=== PATIENT | female | born 1950 | race Caucasian/White ===

== ENCOUNTER 2020-02-08 09:57 | Emergency (ER) | payer MEDICARE, SELFPAY ==
--- NOTE | ~2020-02-08 | XR_ITS ---
EXAMINATION: XR ribs LT 2V w CXR 2V DATE: 02/08/2020 10:41 INDICATION: Left anterior chest pain. Fall. TECHNIQUE: Frontal and lateral views of the chest and 3 views of the left ribs were obtained. COMPARISON: None. FINDINGS: CHEST TWO VIEWS: A calcified right lung nodule is consistent with old granulomatous disease. No pleur al effusion or pneumothorax. The heart size is normal. Median sternotomy wires and mediastinal surgic al clips are seen, likely from prior coronary artery bypass grafting. 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 LEFT RIBS: There are fractures of left sixth and seventh ribs. IMPRESSION: 1. Acute fractures of left sixth and seventh ribs. Reviewed, dictated and finalized at location A.
--- NOTE | 2020-02-08 09:58 | ED.GENADULT ---
HPI - General Adult General Chief complaint: Fall Stated complaint: Fall pain in ribs Time Seen by Provider: 02/08/20 09:58 Source: patient Mode of arrival: ambulatory Limitations: no limitations History of Present Illness HPI narrative: 69-year-old female patient presents to the [facility] with complaints of left-sided rib pain. Patient states that she fell about 5 days ago. Patient states she went to go and step up into her garage and states that she fell landing on her left side onto some concrete tile. Patient states that she also hit her head at that time but denies any loss of consciousness. Patient states she has been taking some leftover [place] for her pain. Patient states she did use ice to the area one time on the day of the fall. Patient denies any lightheadedness, dizziness or vision changes. Patient denies taking any blood thinners. Patient states that she does have pain when breathing to the left side. Related Data Home Medications Medication Instructions Recorded Confirmed atorvastatin 80 mg PO DAILY 02/08/20 02/08/20 carvedilol 6.25 mg PO BID 02/08/20 02/08/20 Allergies Allergy/AdvReac Type Severity Reaction Status Date / Time No Known Allergies Allergy Verified 02/08/20 10:16 Review of Systems Review of Systems: Narrative: CONSTITUTIONAL: Denies fever, chills, or sweats. EYES: Denies visual changes, redness, or discharge. ENT: Denies rhinorrhea, congestion, sore throat, or otalgia. CARDIOVASCULAR: Denies chest pain, palpitations, or edema. RESPIRATORY: Denies cough or dyspnea. GASTROINTESTINAL: Denies abdominal pain, nausea, vomiting, or diarrhea. GENITOURINARY: Denies dysuria or hematuria. SKIN: Denies rash or itching. MUSCULOSKELETAL: Denies back pain, joint pain, or myalgia. Positive left-sided rib pain x5 days NEUROLOGIC: Denies headache, numbness, or weakness. PSYCHIATRIC: Denies anxiety or depression. PMFSH Comments At the time of my signature I agree with nursing past medical history, surgical, social, and family history. There is no relevant family history pertinent to the presenting complaint. Exam Narrative: Exam Narrative: GENERAL: Well-appearing, well-nourished, and in no acute distress. HEAD: Normocephalic, patient does have a yellow bruising noted over the left eye that does appear to be healing. EYES: PERRLA and EOM intact without limitation or complaint of pain, no periorbital soft tissue swelling ,no erythema, warmth or tenderness noted, no obvious deformity. No crusting or swelling.no tearing or draining.No photophobia. No nystagmus No FB or lesion on lid eversion. Corneas grossly clear, no obvious FB or hyphens/hypopyon. No injection to sclera. Lids and lashes clear. ENT: Nares clear, no rhinorrhea or epistaxis. Mucous membranes moist. NECK: Supple. No lymphadenopathy CHEST: Clear to auscultation. No respiratory distress. Patient able talk in clear complete sentences. Patient does have some pain on palpation noted between the seventh eighth and ninth ribs on the left side mostly towards lateral side as well as the anterior side. No pain to the rib area on the posterior side. No obvious bruising noted. HEART: Regular rate and rhythm. No murmur heard. Normal peripheral pulses. ABDOMEN: Soft, nontender, nondistended, normal active bowel sounds. EXTREMITIES: Normal range of motion. No edema. SKIN: Warm, dry, no rash. NEURO: No focal deficits. Alert and oriented x3. Course Reevaluation(s) Reevaluation #1: Reevaluated patient after her x-ray had resulted. Discussed with her that it does appear that she is got a fracture of the sixth and seventh rib on the left side. Discussed with her that mainly for treatment of this is going to be pain control as well as deep breathing exercises to prevent pneumonia. Demonstrated patient with a pillow on how to brace herself to do deep breathing exercises. Discussed with patient that she can expect for this pain to be around for at least
[2020-02-08 10:16] VITALS: BP 148/75; PULSE 65; RESP 16; TEMP 36.8; O2SAT 99
== END 2020-02-08 11:00 | disposition home or self-care (01) ==
PROVIDERS: Emergency Provider Nurse Practitioner Family
DX: S22.42XA Multiple fractures of ribs, left side, initial encounter for closed fracture (principal); I25.10 Atherosclerotic heart disease of native coronary artery without angina pectoris; Z95.1 Presence of aortocoronary bypass graft; Z96.612 Presence of left artificial shoulder joint; W10.9XXA Fall (on) (from) unspecified stairs and steps, initial encounter
CPT/HCPCS: 71046; 71100; 99203; G0463